=== PATIENT | female | born 1970 | race Caucasian/White ===

== ENCOUNTER → 2020-08-02 07:28 | Outpatient (CLI) | payer BC, SELFPAY ==
--- NOTE | 2020-08-02 08:00 | BRBX_PTH ---
PATIENT: CYDNEY COLORADO LOC: [facility] U#:[id number] AGE/SX: 55/F ROOM: RE08/02/[address]: Dr. Tabby Qiunteros MD : [id number] BED: DIS: SPEC #: [id number] RECD: 08/02/20 08:16 STATUS: BRENDA CHARITO #: [id number] DEBORA: 08/02/20 08:[address]: Tabby Quinteros DEPT: SURGICAL PATHOLOGY RECD BY: Cynthia Lopez ENTERED: 08/02/20 09:22 SP TYPE: BREAST BX OTHR DR: Dr. Hayden Dick MD Tissues: Breast, NOS Procedures: Surgery Specimen Level IV HEADER OPERATION: Left breast stereotactic needle core biopsy PRE-OP DIAGNOSIS: 1.2 cm focal asymmetry 1 o'clock middle depth TISSUE SUBMITTED: Left breast tissue ISCHEMIC TIME: 2 minutes FIXATION TIME: 11.5 hours MICROSCOPIC DIAGNOSIS Left breast, stereotactic needle core biopsy: Fibrocystic changes, focal adenosis, focal dense fibrosis and mild intraductal hyperplasia without atypia. Negative for malignancy. See comment. PEREZ:nicolas 08/03/20 COMMENT Correlation with clinical, radiologic findings and appropriate follow up are necessary. MICROSCOPIC DESCRIPTION Slides are reviewed. GROSS DESCRIPTION Received in fixative is one container labeled with the patient name and designated left breast. The specimen consists of multiple elongated fragments of aquino-yellow fibroadipose tissue that in aggregate measure 5 x 3 x 0.3 cm. The entire specimen is submitted in two cassettes. / PEREZ:nicolas 08/02/20 TC:5 CPT: 98831
--- NOTE | 2020-08-02 08:59 | PCM.OPRPT ---
Report of Operation Date of Procedure: 08/02/20 Pre-Operative Diagnosis: abnormal lesion seen on left breast mammograms Post-Operative Diagnosis: same Surgery/Procedure Performed:: left stereotactic breast biopsy Description of Surgical Findings:: nodular lesion seen on left breast mammograms Type of Anesthesia:: Local - 1% xylocaine Specimen's removed: left breast tissue Estimated Blood Loss (mL): minimal Description of Procedure: After informed consent was given, the patient was brought into the Breast Biopsy suite. Appropriate time out protocol was followed. The patient was placed in the prone position on the stereotactic biopsy table. The patient?s left breast was then placed in the opening at the head of the biopsy table. A fast food restaurant manager compression mammogram was then obtained in the CC view. The suspicious radiological lesion was thus identified. Stereo pictures of the lesion were then taken for XYZ coordinates. The Mammotome biopsy stylus was then positioned where it would be entering into the patient?s breast. The skin at this site was then cleansed with a surgical skin preparation. The skin and subcutaneous tissues at this site were then infiltrated with 1% xylocaine. A small skin incision was made with an 11 blade scalpel. The biopsy stylus was then positioned into the patient?s breast at the proper coordinates of depth. Using the Mammotome vacuum-assist device, several core samples of breast tissue were obtained. A hemostatic marker clip was then placed into the biopsy cavity and a fast food restaurant manager film revealed that it was properly deployed. I reviewed this personally and concluded that the tissue sampling was adequate. The patient was then placed in the supine position and pressure was applied to the breast until no active bleeding was noted. Steristrips were applied to reapproximate the skin. A unilateral mammogram in the CC and MLO view were then taken which revealed that the marker clip was in the same area as the previous suspicious lesion. The patient tolerated the procedure well and was discharged from the Breast Biopsy suite in good condition. - Complications none noted
== END ==
PROVIDERS: PCP Family Medicine; Referring Provider Surgery; Visit Provider Surgery
DX: R92.8 Other abnormal and inconclusive findings on diagnostic imaging of breast (principal); N62 Hypertrophy of breast; N60.32 Fibrosclerosis of left breast
CPT/HCPCS: 19081; 88305; J7050; A4648

== ENCOUNTER 2021-12-05 16:30 | Outpatient (RCR) | payer OTHER, SELFPAY ==
--- NOTE | 2021-11-05 16:43 | HP.OTEVAL ---
Patient's Visit Information SILVIA COLORADO is a 51 year old F, referred to Occupational Therapy by SARAH SCHAFFER, with a diagnosis of B carpal tunnel syndrome, B cubital tunnel syndrome. Date of Evaluation: 10/30/21 Occupational Therapist: Debbie Calderon S/OT - Subjective 51 year old female post ulnar nerve transposition sx. sx site on B elbows and at wrists. pt. c/o hypersensitivity to B elbows with touch and pressure. Pt. also stating she is having difficulty with wrist flexion, and decreased sensation to L fingers. She still has difficulty with grooming, household tasks, meal prep, & handwriting. Right CTR Ulnar nerve transposition was performed on 09-24-21 & Left on 10-08-21. Pt would like to return to her PLOF. 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 stating that she was able to dry her hair for the first time today, but still very difficult. Family has assisted with meal prep and pack operator such as vacuuming. - Pain Bilateral Elbow 0 - Objective hand writing is legible fatigues with time - ROM Elbow: Right 0/135 left 0/135 Wrist: right 45/35 left 45/45 ROM Comments: pt demo ability to form composite fist - Strength Shoulder: WNL Elbow: WNL Forearm: WNL Crime Prevention Worker: R 20#L20# Lateral Pinch: R9# L 9# Tripod Pinch: R9#L8# Tip-to-Tip Pinch: R7# L8# - Sensation Thumb: R& L3.61 Index: R& L3.61 Middle: R & L3.61 Ring: R 3.61 L3.84 Little: R 3.61 L 3.84 Sensation Comments: L ring and L little digits unable to feel past 3.61 filament. 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 Silvia will increase pinch strength to 15# for work performance within 6 weeks. Goal:: Silvia will improve R wrist ROM to 45 degrees for indep. with ADL tasks within 6 weeks. Silvia will improve L wrist ROM to 55 degrees for indep. ADL tasks within 6 weeks. Goal:: Silvia will increase handwriting endurance for work performance within 6 weeks. Goal:: Silvia will have decreased sensitivity to sx. site on B elbows within 6 weeks. Goal:: Silvia will demonstrate understanding of scar mgt within 6 weeks. Goal:: Silvia will increase independence with grooming without difficulty within 6 weeks. - Rehabilitation General Assessment: Pt. had ulnar compartmental release sx 5 weeks ago on R & then had sx 3 weeks ago on L. Because of limited wrist flexion and sensitivity to surgical area pt. has had decreased independence with ADL's, IADL's, and work performance with hand writing. Pt. would benefit from skilled OT 2x week for 6 weeks to improve wrist flexion, hand strength, scar management and desensitization of sx site,. today pt. participated in BUE AROM 15 reps from elbow to fingers. S/OT educated pt. on scar desensitization technique for home. S/OT educated pt. on what to expect with recovery. S/OT provided HEP and recommendations such as using gel pen for handwriting. S/OT completed evaluation for ROM and strength. pt. demo'd understanding and agreeable to POC. This session was directly supervised and doc. approved by Cici MUNSON/Polina T Rehabilitation Potential: Excellent - Anticipated Interventions A/AAROM/PROM, Strengthening, Scar Care, Desensitization, Modalities, Ergonomic Education, Fine Motor Coord/Serafin, Education re Diagnosis, Home Program - Visit Plan Frequency: 2x /Week Duration: 6 Weeks TEXT: Thank you for the opportunity to evaluate your patient. For Medicare and Medicare HMO plans, please review the plan of care and approve it. It will need to be FAXED BACK to us at [phone] for Medicare purposes. Please let me know if there are questions or concerns regarding this plan of care. Physician Signature: Date:
--- NOTE | 2021-11-05 17:01 | HP.OTEVAL_ITS ---
Patient's Visit Information CYDNEY COLORADO is a 51 year old F, referred to Occupational Therapy by SARAH SCHAFFER, with a diagnosis of B carpal tunnel syndrome, B cubital tunnel syndrome. Date of Evaluation: 10/30/21 Occupational Therapist: Cici Vargas, PAWELR/Polina, CHT - Subjective 51 year old female post ulnar nerve transposition sx. sx site on B elbows and at wrists. pt. c/o hypersensitivity to B elbows with touch and pressure. Pt. also stating she is having difficulty with wrist flexion, and decreased sensation to L fingers. She still has difficulty with grooming, household tasks, meal prep, & handwriting. Right CTR Ulnar nerve transposition was performed on 09-24-21 & Left on 10-08-21. Pt would like to return to her PLOF. 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 stating that she was able to dry her hair for the first time today, but still very difficult. Family has assisted with meal prep and cherry dipper such as vacuuming. - Pain Bilateral Elbow 0 - Objective hand writing is legible fatigues with time - ROM Elbow: Right 0/135 left 0/135 Wrist: right 45/35 left 45/45 ROM Comments: pt demo ability to form composite fist - Strength Shoulder: WNL Elbow: WNL Forearm: WNL Maintenance Mechanic Telephone: R 20#L20# Lateral Pinch: R9# L 9# Tripod Pinch: R9#L8# Tip-to-Tip Pinch: R7# L8# - Sensation Thumb: R& L3.61 Index: R& L3.61 Middle: R & L3.61 Ring: R 3.61 L3.84 Little: R 3.61 L 3.84 Sensation Comments: L ring and L little digits unable to feel past 3.61 filament. diminished light touch - Quick DASH-Disab of Arm,Shoulder& Hand Quick DASH Score: 55.0000 - Hand/Wrist Evaluation Total Score of Pain & Functional Sections: 0 - Goals Goal:: Cydney will increase senior technical support engineer strength to 30# for ADL tasks on B hands within 6 weeks. Cydney will increase pinch strength to 15# for work performance within 6 weeks. Goal:: Cydney will improve R wrist ROM to 45 degrees for indep. with ADL tasks within 6 weeks. Cydney will improve L wrist ROM to 55 degrees for indep. ADL tasks within 6 weeks. Goal:: Cydney will increase handwriting endurance for work performance within 6 weeks. Goal:: Cydney will have decreased sensitivity to sx. site on B elbows within 6 weeks. Goal:: Cydney will demonstrate understanding of scar mgt within 6 weeks. Goal:: Cydney will increase independence with grooming without difficulty within 6 weeks. - Rehabilitation General Assessment: Pt. had ulnar compartmental release sx 5 weeks ago on R & then had sx 3 weeks ago on L. Because of limited wrist flexion and sensitivity to surgical area pt. has had decreased independence with ADL's, IADL's, and work performance with hand writing. Pt. would benefit from skilled OT 2x week for 6 weeks to improve wrist flexion, hand strength, scar management and desensitization of sx site,. today pt. participated in BUE AROM 15 reps from elbow to fingers. S/OT educated pt. on scar desensitization technique for home. S/OT educated pt. on what to expect with recovery. S/OT provided HEP and recommendations such as using gel pen for handwriting. S/OT completed evaluation for ROM and strength. pt. demo'd understanding and agreeable to POC. This session was directly supervised and doc. approved by Cici MUNSON/Polina T Rehabilitation Potential: Excellent - Anticipated Interventions A/AAROM/PROM, Strengthening, Scar Care, Desensitization, Modalities, Ergonomic Education, Fine Motor Coord/Serafin, Education re Diagnosis, Home Program - Visit Plan Frequency: 2x /Week Duration: 6 Weeks TEXT: Thank you for the opportunity to evaluate your patient. For Medicare and Medicare HMO plans, please review the plan of care and approve it. It will need to be FAXED BACK to us at [phone] for Medicare purposes. Please let me know if there are questions or concerns regarding this plan of care. Physician Signature: Date:_
--- NOTE | 2021-11-05 17:05 | HP.OTEVAL ---
Patient's Visit Information SILVIA COLORADO is a 51 year old F, referred to Occupational Therapy by SARAH SCHAFFER, with a diagnosis of B carpal tunnel syndrome, B cubital tunnel syndrome. Date of Evaluation: 10/30/21 Occupational Therapist: Debbie Calderon - Subjective 51 year old female post ulnar nerve transposition sx. sx site on B elbows and at wrists. pt. c/o hypersensitivity to B elbows with touch and pressure. Pt. also stating she is having difficulty with wrist flexion, and decreased sensation to L fingers. She still has difficulty with grooming, household tasks, meal prep, & handwriting. Right CTR Ulnar nerve transposition was performed on 09-24-21 & Left on 10-08-21. Pt would like to return to her PLOF. 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 stating that she was able to dry her hair for the first time today, but still very difficult. Family has assisted with meal prep and welder production line arc such as vacuuming. - Pain Bilateral Elbow 0 - Objective hand writing is legible fatigues with time - ROM Elbow: Right 0/135 left 0/135 Wrist: right 45/35 left 45/45 ROM Comments: pt demo ability to form composite fist - Strength Shoulder: WNL Elbow: WNL Forearm: WNL Ballroom Dancer: R 20#L20# Lateral Pinch: R9# L 9# Tripod Pinch: R9#L8# Tip-to-Tip Pinch: R7# L8# - Sensation Thumb: R& L3.61 Index: R& L3.61 Middle: R & L3.61 Ring: R 3.61 L3.84 Little: R 3.61 L 3.84 Sensation Comments: L ring and L little digits unable to feel past 3.61 filament. diminished light touch - Quick DASH-Disab of Arm,Shoulder& Hand Quick DASH Score: 55.0000 - Hand/Wrist Evaluation Total Score of Pain & Functional Sections: 0 - Goals Goal:: Silvia will increase gearcase assembler strength to 30# for ADL tasks on B hands within 6 weeks. Silvia will increase pinch strength to 15# for work performance within 6 weeks. Goal:: Silvia will improve R wrist ROM to 45 degrees for indep. with ADL tasks within 6 weeks. Silvia will improve L wrist ROM to 55 degrees for indep. ADL tasks within 6 weeks. Goal:: Silvia will increase handwriting endurance for work performance within 6 weeks. Goal:: Silvia will have decreased sensitivity to sx. site on B elbows within 6 weeks. Goal:: Silvia will demonstrate understanding of scar mgt within 6 weeks. Goal:: Silvia will increase independence with grooming without difficulty within 6 weeks. - Rehabilitation General Assessment: pt. had ulnar compartmental release sx 5 weeks ago on R & then had sx 3 weeks ago on L. because of limited wrist flexion and sensitivity to surgical area pt. has had decreased independence with ADL's, IADL's, and work performance with hand writing. would benefit from skilled OT 2x week for 6 weeks to improve wrist flexion, hand strength, scar management and desensitization of sx site,. today pt. participated in BUE AROM 15 reps from elbow to fingers. educated pt. on scar desensitization technique for home. educated pt. on what to expect with recovery. provided HEP and recommendations such as using gel pen for handwriting. completed evaluation for ROM and strength. pt. demo'd understanding and agreeable to POC. This session was directly supervised and doc. approved by Cici Vargas OTR/Polina, T Rehabilitation Potential: Excellent - Anticipated Interventions A/AAROM/PROM, Strengthening, Scar Care, Desensitization, Modalities, Ergonomic Education, Fine Motor Coord/Serafin, Education re Diagnosis, Home Program - Visit Plan Frequency: 2x /Week Duration: 6 Weeks TEXT: Thank you for the opportunity to evaluate your patient. For Medicare and Medicare HMO plans, please review the plan of care and approve it. It will need to be FAXED BACK to us at [phone] for Medicare purposes. Please let me know if there are questions or concerns regarding this plan of care. Physician Signature: Date:
--- NOTE | 2022-04-17 15:18 | HP.OTDCSUM_ITS ---
It has been my pleasure to treat CYDNEY COLORADO under orders from SARAH SCHAFFER, for the diagnosis of B carpal tunnel syndrome, B cubital tunnel syndrome for a total of 12 visit(s). Please see the following information for a summary of their discharge status. 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 R wrist ext 35*. R wrist flex 60*. L wrist ext 35*. L wrist flex 60*. pt continues to demo weakness of bilateral helper animal laboratory strength but was instructed to continue her HEP to gain strength- pt demo understanding. Patient Goals: Regain Mobility, Regain Strength, Decrease Pain, Return to Work, Improve Fine Motor Skills, Use Hand/Wrist/Arm Normally Again, Decrease Tingling/Numbness, Increase ROM, Be More Independent in ADLS, Decrease Sensitivity, Resume Former Household Responsibilities (Cooking,Cleaning,Yard, etc.) Goal:: Cydney will increase helper animal laboratory strength to 30# for ADL tasks on B hands within 6 weeks. Cydney will increase pinch strength to 15# for work performance within 6 weeks. Goal:: Cydney will improve R wrist ROM to 45 degrees for indep. with ADL tasks within 6 weeks. Cydney will improve L wrist ROM to 55 degrees for indep. ADL tasks within 6 weeks. Goal:: Cydney will increase handwriting endurance for work performance within 6 weeks. Goal:: Cydney will have decreased sensitivity to sx. site on B elbows within 6 weeks. Goal:: Cydney will demonstrate understanding of scar mgt within 6 weeks. Goal:: Cydney will increase independence with grooming without difficulty within 6 weeks. Plan: DC Discharge Comments: Pt. has attended 12 therapy sessions. She has met all goals. Pt. reported she has improved her functional performance with ADL's, IADL's, and at work. She reported there has been a 90% improvement since the eval. If there are questions or concerns regarding this patient's occupational therapy, please fell free to call me at [phone]. Thank you for the referral of this patient. Sincerely, Cici Vargas, OTR/L, CHT
== END 2021-12-05 19:00 | disposition home or self-care (01) ==
LOC: OT 16:30
PROVIDERS: PCP Family Medicine
DX: G56.03 Carpal tunnel syndrome, bilateral upper limbs (principal); G56.23 Lesion of ulnar nerve, bilateral upper limbs
CPT/HCPCS: 97035; 97110; 97140; 97165; 97530

== ENCOUNTER 2022-08-31 14:22 | Emergency (ER) | payer OTHER, SELFPAY ==
[2022-08-31 14:24] VITALS: BP 118/75; PULSE 75; RESP 18; TEMP 36.2; O2SAT 100; BMI 32.5
--- NOTE | 2022-08-31 15:18 | EKG12_ITS ---
Test Reason : RIB PAIN Blood Pressure : / mmHG Vent. Rate : 075 BPM Atrial Rate : 075 BPM P-R Int : 152 ms QRS Dur : 072 ms QT Int : 406 ms P-R-T Axes : 018 -14 020 degrees QTc Int : 453 ms Normal sinus rhythm Anterior infarct , age undetermined Abnormal ECG Confirmed by SHANIQUA MICHEL, ASTRID ([id number]), business editor MAGALY GONCALVES ([id number]) on 09/02/2022 10:47:57 AM Referred By: Confirmed By:ASTRID MCGOVERN MD
--- NOTE | 2022-08-31 15:21 | EX.ED.DYSGE1 ---
HPI History of Present Illness Chief Complaint: Chest Other Informant: patient and family Narrative Narrative: Patient presents for an episode where she had some epigastric right upper quadrant pain and some bilateral lower rib pain. She states it hurts to move, twist, even lift up her arms. She did not get nauseated. She was nondiaphoretic. She was not lightheaded. She had pain at the lower rib cage but not up higher in the chest. No back pain. She took Tylenol at home and the symptoms are almost gone now except for some mild epigastric to right upper quadrant discomfort but it is quite mild now. Patient has had half a dozen or more of these episodes over the past 2 years. In between the episodes she feels totally fine. They usually last for half an hour to 2 hours. She has seen her doctor for them but not while she is having symptoms. She has also seen her pathology transcriptionist for which she sees because of a tachycardia. She has not had stress test. She also still has her gallbladder. At this time she is essentially asymptomatic. She has no family history of heart disease. She is non-smoker, no diabetes. She does have some high cholesterol and was started on a statin about a year ago. She is on Bystolic for heart rate control but not for blood pressure. She has never had high blood pressure. She also has no recent travel surgery immobilization personal or family history of DVT or PE. Past medical history: Tachycardia, migraines Medications include Aimovig, Bystolic, statin Allergy to erythromycin Surgeries include bilateral tubal ligation. She has not had cholecystectomy. Non-smoker lives with family [facility] Medical History (Updated 08/31/22 @ 19:[address] Keanu Theodore MD) Carpal tunnel syndrome, bilateral Deviated septum Hyperlipemia Migraine Tachycardia Home Medications erenumab-aooe 70 mg/mL subcutaneous auto-injector (Aimovig Autoinjector) mg subcut 08/31/22 [History Last Taken Unknown] hydrocodone-acetaminophen 5-325mg 5mg-325mg 1 tab PO Q6H PRN pain 3 days #6 tabs 08/31/22 [Rx Last Taken Unknown] ondansetron 4 mg disintegrating tablet 4 mg PO Q8H PRN nausea and vomiting #10 tabs 08/31/22 [Rx Last Taken Unknown] phentermine 37.5 mg tablet mg 08/31/22 [History Last Taken Unknown] sumatriptan succinate 100 mg tablet mg PO 08/31/22 [History Last Taken Unknown] Allergy/AdvReac Type Severity Reaction Status Date / Time erythromycin base Allergy Other Verified 08/31/22 14:24 [From E-Mycin] Surgical History (Updated 08/31/22 @ 15:22 by Yuliana Hall) History of tonsillectomy Social History Smoking Status: Never smoker ROS ROS ED ROS Narrative See history of present illness in addition. Constitutional Constitutional ED: Denies chills or fever(s) ENT ENT ED: Denies rhinorrhea or sore throat Cardiovascular Cardiovascular: Denies palpitations or racing heartbeat Respiratory/Chest Respiratory/Chest: Denies cough or dyspnea Gastrointestinal Gastrointestinal: Denies nausea or vomiting Genitourinary Genitourinary ED: Denies dysuria or hematuria Musculoskeletal Musculoskeletal: Denies back pain Integumentary Denies rash EXAM Physical Exam Narrative Exam Narrative: Physical exam HEENT no trauma no pallor mucous membranes are moist Neck shows no pain with range of motion palpation and no JVD. No stridor. Lungs are completely clear bilaterally. She takes good deep breaths without any pain or discomfort. There is really no rib tenderness now but she states the symptoms are essentially gone. I do not see any rashes or vesicles. Cardiac: Heart is regular without murmur gallop or rub. Tones are not muffled. She is not tachycardic. Peripheral pulses are normal x4 Abdomen she has minimal right upper quadrant epigastric tenderness. She states more that she can feel it pressing in that area but is not really objectively tender. There is certainly no rebound or guarding. There is no CVA tenderness. No suprapubic tenderness Extremities show no edema cords asymmetry distended veins or tenderness along the deep venous system Neurologically she is alert oriented and appropriate with him normal strength sensation and coordination. I see no skin rashes. Const Vital Signs: 08/31/22 14:24 08/31/22 15:23 08/31/22 17:24 Temperature 97.1 F L Temperature Source Temporal Pulse Rate 75 78 Respiratory Rate 18 16 Respiratory Effort Normal Non-Labored Respiratory Pattern Normal Blood Pressure 118/75 134/78 H Blood Pressure Mean 89 96 Pulse Ox 100 98 Oxygen Delivery Method Room Air Room Air Positive well nourished and well developed General Appearance ED: well developed and NAD MDM MDM MDM Narrative Medical decision making narrative: Review of prior records: I was able to find on our system a report of a nuclear stress test from 08/10/2014 done as an outpatient. This showed no evidence of ischemia at a high workload. This patient's symptoms are not typical of heart disease. She has had symptoms that last up to 2 hours widely spaced over about a 2-year period. She is not having dyspnea nausea vomiting etc. with the symptoms. The symptoms are not typical of pulmonary embolus. She has intermittent symptoms that last a short period of time with being completely asymptomatic between the episodes. They also occur bilaterally at the same time. She is not tachypneic hypoxic or tachycardic. She has no known risk factor for pulmonary embolus. For these reasons, we did not pursue this also her symptoms are now gone. Patient CBC showed a elevated white count at 14.6. Remainder CBC is normal. Electrolytes are overall normal. However, her liver function test did show a rise of bilirubin AST and ALT. This is leading me to think more likely that her symptoms are from biliary colic. My independent interpretation of the patient's single view AP chest x-ray shows no acute process. No cardiomegaly. No infiltrate. 16:15 I went to recheck the patient and talk to her. She is having the pain come back now. It is more in the epigastric and right upper quadrant than before. She has a little bit of tenderness in that area. This is leading me to think more likely that this is biliary in source. She is not having dyspnea. She does have some right upper quadrant tenderness but no rebound or guarding. With the elevated white count, elevated bilirubin, elevated AST and ALT we will do an ultrasound. Ultrasound showed gallstones and questionable thickening in a couple areas of the gallbladder. There is also question hypodense area in the liver. We did follow this as recommended on the ultrasound reading with CAT scan. This CAT scan shows no acute process. It also shows no finding of biliary obstruction. I rechecked the patient again. She is still completely asymptomatic. She would like to go home and follow-up. We discussed that she may have a HIDA scan in the future. We also discussed reasons that would bring her back between now and secondary evaluation. I also discussed that she may need cholecystectomy in the future. But I do not think that needs to be done acutely now and I do not think she needs admission. Lab Data Attestation: I reviewed the patient's lab results. Labs: Laboratory Results - last 24 hr 08/31/22 08/31/22 08/31/22 15:35 15:35 15:35 WBC 14.6 H RBC 4.88 Hgb 14.9 Hct 43.9 MCV 90.0 MCH 30.5 MCHC 33.9 RDW Std Deviation 40.2 RDW Coeff of Miguelito 12.2 Plt Count 288 MPV 10.4 Immature Gran % (Auto) 0.300 Neut % (Auto) 85.1 H Lymph % (Auto) 9.2 L Becker % (Auto) 4.2 Eos % (Auto) 0.8 Baso % (Auto) 0.4 Absolute Neuts (auto) 12.5 H Absolute Lymphs (auto) 1.34 Nucleated RBC % 0 Differential Comment SCANNED Sodium 143 Potassium 3.8 Chloride 110 H Carbon Dioxide 26.0 Anion Gap 7 BUN 17 Creatinine 0.93 Estim Creat Clear Calc 53.40 Est GFR (MDRD) Af Amer 81 Est GFR (MDRD) Non-Af 67 BUN/Creatinine Ratio 18.2 Glucose 121 H Calcium 9.2 Total Bilirubin 1.30 H AST 146 H ALT 104 H Alkaline Phosphatase 104 Troponin I High Sens 4 Total Protein 7.8 Albumin 4.1 Globulin 3.7 Albumin/Globulin Ratio 1.1 Lipase 191 Radiography Diagnostic Testing: Clinical Impression(s) from Imaging Studies Chest X-Ray 08/31/22 15:42 IMPRESSION: No radiographic evidence of acute cardiopulmonary disease. Electronically Signed: Mendoza Thomas MD at 16:05 EST , Gallbladder Ultrasound 08/31/22 16:17 IMPRESSION: Hypoechoic area of apparent hepatic parenchyma anterior to the common bile duct with associated intrahepatic and extrahepatic biliary dilation raises suspicion for cancer versus area of focal fatty sparing in an otherwise steatotic liver. Recommend liver protocol abdomen CT to evaluate malignant potential and cause of biliary obstruction. Electronically Signed: Mendoza Thomas MD at 18:14 EST , Abdomen/Pelvis CT 08/31/22 18:24 IMPRESSION: Negative CT of the abdomen and pelvis with and without contrast. The hypoechoic area anterior to the CBD on ultrasound probably represents focal fatty sparing in the liver faintly seen on portal venous and delayed series, a normal variant. No finding of biliary obstruction. Electronically Signed: Mendoza Thomas MD at 19:20 EST , EKG Initial EKG: Comments: My independent interpretation of an EKG done for bilateral rib pain shows a normal sinus rhythm. Overall rate is 75. There is no ectopy. No acute ST elevation or depression. [place] interval, QRS duration and QTc are normal. I looked for but was not able to find prior EKG on our system. Discharge Plan Triage Chief Complaint: Chest Other ED Provider: Keanu Theodore Dx/Rx/DC Orders Clinical Impression: Rib pain, Epigastric abdominal pain, Biliary colic Instructions: ED Abdominal Pain Gallstone Poss, ED Chest Pain, Uncertain Cause Prescriptions: New ondansetron 4 mg tablet,disintegrating 4 mg PO Q8H PRN (Reason: nausea and vomiting) Qty: 10 0RF hydrocodone-acetaminophen 5-325 mg tablet 1 tab PO Q6H PRN (Reason: pain) 3 Days Qty: 6 0RF No Action sumatriptan succinate 100 mg tablet PO Label Comments: TAKE ONE TABLET BY MOUTH NEEDED FOR MIGRAINE, CAN REPEAT DOSE IN TWO HOURS IF NEEDED. MAX 2/24 HOURS phentermine 37.5 mg tablet Label Comments: TAKE ONE TABLET BY MOUTH DAILY Aimovig Autoinjector 70 mg/mL auto-injector SUBCUT Label Comments: inject 1ml SUBCUTANEOUSLY ONCE EVERY MONTH Primary Care Provider: Hayden Dick Referrals: Hayden Dick MD [Primary Care Provider] - 3-5 Days Disposition Disposition: Home, Self Care
--- NOTE | 2022-08-31 15:42 | RAD_ITS ---
INDICATION: CP EXAMINATION/TECHNIQUE: X-RAY - XR Chest 1 View COMPARISON: None. FINDINGS: LINES/DEVICES: None. LUNGS: No consolidation, edema or effusion. No pneumothorax. MEDIASTINUM AND CARDIOVASCULAR STRUCTURES: Cardiac silhouette not enlarged. Central airways and mediastinal contour are unremarkable. RAD/Chest 1 View (Portable) IMPRESSION: No radiographic evidence of acute cardiopulmonary disease. Electronically Signed: Mendoza Thomas MD at 16:05 EST ,
[2022-08-31 15:50] LABS: Absolute Lymphocyte Count 1.34 X10^3/uL (0.83-4.51); Absolute Neutrophil Count 12.5 X10^3/uL (2.0-7.7); Basophil# 0.06 X10^3/uL; Basophil% 0.4 % (0-1); Eosinophil# 0.11 X10^3/uL; Eosinophils% 0.8 % (0-5); Hematocrit 43.9 % (37-47); Hemoglobin 14.9 g/dL (12.0-15.0); Lymphocyte # 1.34 X10^3/ul (0.83-4.51); Lymphocyte % 9.2 % (19-41); Mean Corp Hgb Conc 33.9 g/dL (32-36); Mean Corpuscular Hgb 30.5 pg (27.0-32.0); Mean Platelet Vol. 10.4 fl (6.2-12.0); Monocyte# 0.61 X10^3/uL; Monocyte% 4.2 % (0-10); NRBC Flagged by Analyzer 0 % (0-5); Neutrophil # 12.46 X10^3/uL (2.7-7.7); Neutrophil % 85.1 % (47-70); POSITIVE COUNT YES; Platelet Count 288 K/mm3 (150-450); RBC Distribution Width CV 12.2 % (11.6-14.6); RBC Distribution Width SD 40.2 fl (35.1-43.9); Red Blood Count 4.88 M/mm3 (4.2-5.4); White Blood Count 14.6 K/mm3 (4.4-11.0)
[2022-08-31 15:52] LABS: Differential Indicated SCAN CRITERIA MET
[2022-08-31 16:04] LABS: ALB/GLOB Ratio 1.1 RATIO (0.9-2.4); AST(SGOT) 146 U/L (15-37); Alanine Aminotransfer ALT/SGPT 104 U/L (13-56); Albumin, Serum 4.1 g/dL (3.2-5.0); Alkaline Phosphatase 104 U/L (45-117); Anion Gap 7 (5-15); BUN 17 mg/dL (7-18); BUN/Creat Ratio 18.2 RATIO (10-20); Calcium,Total 9.2 mg/dL (8.5-10.1); Chloride 110 mmol/L (98-107); Creatinine, Serum 0.93 mg/dL (0.55-1.02); EST Glomerular Filtration Rate 67 mL/min (>60); Est Glom Filt Rate - Afr Amer 81 mL/min (>60); Globulin 3.7 g/dL (2.2-4.2); Glucose 121 mg/dL (74-106); Potassium 3.8 mmol/L (3.5-5.1); Protein, Total 7.8 g/dL (6.4-8.2); Sodium Level 143 mmol/L (136-145); Troponin-I HS 4 pg/mL (3.0-54.0)
--- NOTE | 2022-08-31 16:17 | US_ITS ---
INDICATION: Right upper quadrant pain, elevated liver function EXAMINATION: Ultrasound US Abdomen RUQ (limited) TECHNIQUE: King scale and color doppler imaging was performed of the right upper quadrant. COMPARISON: None. FINDINGS: LIVER: There is increased echogenicity. There is intrahepatic biliary dilation. No focal hepatic lesion. There is no free fluid. GALLBLADDER AND BILIARY TREE: There are multiple stones in the gallbladder. The gallbladder wall is borderline thickened where measured, though this does not seem like a parts counter representative measurement. The proximal common bile duct measures 7.9 mm. There is a 6.2 x 3.1 x 5.4 cm hypoechoic area anterior to the common bile duct. Sonographic Cleaning''s sign: Negative. PANCREAS: No focal abnormality is demonstrated in the pancreas. No pancreatic ductal dilatation. RIGHT KIDNEY: 11.1 x 4.6 x 4.3 cm. No hydronephrosis. US/Gallbladder IMPRESSION: Hypoechoic area of apparent hepatic parenchyma anterior to the common bile duct with associated intrahepatic and extrahepatic biliary dilation raises suspicion for cancer versus area of focal fatty sparing in an otherwise steatotic liver. Recommend liver protocol abdomen CT to evaluate malignant potential and cause of biliary obstruction. Electronically Signed: Mendoza Thomas MD at 18:14 EST ,
[2022-08-31 16:26] LABS: Differential Comment SCANNED
[2022-08-31] MEDS: Ketorolac 15 MG/ML Vial IV (16:37)
[2022-08-31] MEDS: Ondansetron 4 MG/2 ML Vial IV (16:37)
[2022-08-31 17:24] VITALS: BP 134/78; PULSE 78; RESP 16; O2SAT 98
[2022-08-31] MEDS: Morphine 4 MG/ML Syringe IV (17:58)
--- NOTE | 2022-08-31 18:24 | CT_ITS ---
INDICATION: Pain, abnormal right upper quadrant ultrasound EXAMINATION: CT ABDOMEN AND PELVIS WITH AND WITHOUT CONTRAST - CT Abdomen And Pelvis WO/W Contrast Injection TECHNIQUE: Helically acquired images were obtained of the abdomen and pelvis both before and after IV contrast. A radiation dose optimization technique was used for this scan. IV Contrast dosage and agent: 100 cc Isovue-370 Oral contrast: None. COMPARISON: None. FINDINGS: LOWER CHEST: Lung bases are clear. No cardiomegaly or pericardial effusion. LIVER: Homogeneous. No focal mass. GALLBLADDER AND BILIARY TREE: No calcified gallstones. No gallbladder distension or wall edema. No intra- or extrahepatic biliary ductal dilation. PANCREAS: No focal cystic or solid mass. SPLEEN: Normal size without focal cystic or solid mass. ADRENAL GLANDS: No nodules. KIDNEYS AND URETERS: Normal renal size and position. No hydronephrosis. PERITONEUM: No ascites or free air. No other fluid collection. BOWEL: No evidence of acute appendicitis. No stomach or bowel distension. No focal inflammatory change. LYMPH NODES: No enlarged mesenteric or retroperitoneal lymph nodes. VESSELS: Aorta is non-dilated. URINARY BLADDER: Unremarkable. REPRODUCTIVE ORGANS: No pelvic masses. ABDOMINAL WALL: No discrete abdominal or pelvic wall hernia. BONES: Normal thoracolumbar vertebral alignment. CT/CT Abd/Pelvis W/WO Contrast IMPRESSION: Negative CT of the abdomen and pelvis with and without contrast. The hypoechoic area anterior to the CBD on ultrasound probably represents focal fatty sparing in the liver faintly seen on portal venous and delayed series, a normal variant. No finding of biliary obstruction. Electronically Signed: Mendoza Thomas MD at 19:20 EST ,
[2022-08-31 18:47] LABS: Lipase 191 U/L (73-393)
[2022-08-31 19:51] VITALS: PULSE 74; RESP 16; O2SAT 98
== END 2022-08-31 19:53 | disposition home or self-care (01) ==
PROVIDERS: Emergency Provider Emergency Medicine; PCP Family Medicine; Visit Provider Emergency Medicine
DX: R07.81 Pleurodynia (principal); K80.70 Calculus of gallbladder and bile duct without cholecystitis without obstruction; E78.00 Pure hypercholesterolemia, unspecified; R00.0 Tachycardia, unspecified; R10.13 Epigastric pain
CPT/HCPCS: 71045; 74178; 76705; 80053; 83690; 84484; 85025; 93005; 96374; 96375; 99282; Q9967; A4216; J2405

== ENCOUNTER 2022-09-20 12:47 | Day surgery (SDC) | payer OTHER, SELFPAY ==
[2022-09-20] VITALS (13 sets, daily range): BP systolic 140–169; BP diastolic 54–91; PULSE 58–88; RESP 16–18; TEMP 36.1–36.7; O2SAT 92–100; BMI 32.5
--- NOTE | 2022-09-20 13:05 | EKG12_ITS ---
Test Reason : PREOP Blood Pressure : / mmHG Vent. Rate : 071 BPM Atrial Rate : 071 BPM P-R Int : 154 ms QRS Dur : 068 ms QT Int : 426 ms P-R-T Axes : 019 -12 011 degrees QTc Int : 462 ms Normal sinus rhythm Normal ECG When compared with ECG of 31-AUG-2022 15:39, No significant change was found Confirmed by SHANIQUA MICHEL, ASTRID ([id number]), telegraph editor MAGALY GONCALVES ([id number]) on 09/24/2022 9:19:21 AM Referred By: Tyson Cheney Confirmed By:ASTRID MCGOVERN MD
[2022-09-20] MEDS: Lactated Ringers 1,000 ML 15 ML IV ×2 (13:37→16:04)
--- NOTE | 2022-09-20 13:38 | PCM.HP.BLA ---
History and Physical Date of Admission: 09/20/22 Intake Vital Signs ? 08/31/2313:24 09/11/2308:54 Height 5 ft 1 in 5 ft 1 in Weight: 172 lb 177 lb BMI 32.5 33.4 BP 118/75 133/89 H Blood Pressure Location ? Lt brachial Position ? Sitting Respiration 18 16 Pulse 75 ? Temp 97.1 F L ? Temp Source Temporal ? Pulse Oximetry (%) 100 ? Intake Visit Reasons:?CHOLECYSTECTOMY Chief Complaint: cholecystectomy Ammonia Nitrate Operator Required: No Is patient in pain?: Yes (right flank) Allergies erythromycin base [From E-Mycin] Allergy (Verified 09/11/22 09:55) Other Medications erenumab-aooe 70 mg/mL subcutaneous auto-injector (Aimovig Autoinjector) mg subcut 08/31/22 [History Confirmed 09/11/22] hydrocodone-acetaminophen 5-325mg 5mg-325mg 1 tab PO Q6H PRN pain 3 days #6 tabs 08/31/22 [Rx Confirmed 09/11/22] ondansetron 4 mg disintegrating tablet 4 mg PO Q8H PRN nausea and vomiting #10 tabs 08/31/22 [Rx Confirmed 09/11/22] phentermine 37.5 mg tablet mg 08/31/22 [History Confirmed 09/11/22] sumatriptan succinate 100 mg tablet mg PO 08/31/22 [History Confirmed 09/11/22] nebivolol 2.5 mg tablet 2.5 mg PO 09/11/22 [History Confirmed 09/11/22] pravastatin 20 mg tablet 20 mg PO 09/11/22 [History Confirmed 09/11/22] PFSH Medical History?(Updated 09/11/22 @ 11:[address] Tyson Cheney MD) Carpal tunnel syndrome, bilateral Deviated septum Hyperlipemia Migraine Tachycardia Surgical History?(Updated 09/11/22 @ 09:53 by Manuela Flowers) History of tonsillectomy S/P bladder repair S/P carpal tunnel release S/P cubital tunnel release S/P nasal septoplasty S/P tubal ligation Family History?(Updated 09/11/22 @ 09:53 by Manuela Flowers) Father Diabetes Heart disease CAD (coronary artery disease) Hypertension Social History?(Updated 09/11/22 @ 09:54 by Manuela Flowers) Smoking Status:? Never smoker alcohol intake:? never HPI HPI HPI: Patient is a 52-year-old female with episodic pain.? She says that when she feels the pain it feels like someone is grabbing her by her mid torso and squeezing.? She has occasionally she has epigastric pain as well.? She denies nausea or vomiting.? She says this happens in episodes and currently she is not having any pain. ROS General General: Yes weight change and fatigue; No appetite, colon cancer, breast cancer or weakness HEENT HEENT: No difficulty swallowing, eye injury, eye surgery, swollen glands or hoarseness Endo Endocrine: No thyroid disease, diabetes mellitus, thyroid cancer, Hair loss, heat intolerance or cold intolerance Skin Skin: No rash or changing moles Breast Breast: No left breast lump, right breast lump, nipple discharge, breast pain, abnormal mammogram, abnormal US or breast enlargement Musc Musculoskeletal: No back problems, arthritis, rheumatoid arthritis, gout or joint pain Cardio Cardiovascular: No murmur, pacemaker, heart disease, atrial fibrillation, high blood pressure, heart attack, heart stent, palpitations, shortness of breat with exertion or chest pain Psych Psychiatric: No depression, anxiety or hearing voices Resp Respiratory: No shortness of breath, Yes sleep apnea, No cough, No COPD, No asthma, No emphysema and No wheezing Gastro Gastrointestinal: Yes abdominal pain, Yes nausea or vomiting, No diarrhea, No constipation, No blood in stool, No acid reflux, No hemorrhoids, No ulcers, Yes gallbladder problem and No black,tarry stools Anish Hematologic: No blood thinners, No blood disorders, No bleeding, No anemia and No blood clots Neuro Neurologic: No system reviewed and no additional complaints, except as documented, No as per HPI, No abnormal gait, No abnormal hearing, No abnormal movements, No abnormal speech, No behavioral changes, No burning sensations, No confusion, No convulsions, No disequilibrium, No dizziness, No localized weakness, No frequent falls, No headache(s), No lack of coordination, No loss of vision, No memory loss, No numbness, No other visual disturbances, No radicular pain, No restless legs, No sensory deficit, No syncope, No tingling, No tremor(s), No weakness and No other Exam Const General: cooperative Orientation: alert and oriented x3 HENMT Head: normal to inspection Neck Neck: normal visual inspection and full ROM Chest Chest palpation & inspection: normal inspection of the chest Resp Effort & Inspection: normal respiratory effort Auscultation: clear to auscultation bilaterally Cardio Rate: regular rate Rhythm: regular rhythm GI Inspection: non-distended Palpation: soft and nontender Skin General: no rashes or lesions noted Neuro General: patient alert and patient oriented x3 Extrem General: full ROM Psych Appearance: grossly normal Mental Status: mental status grossly normal Assessment and Plan Assessment and Plan (1) Cholelithiasis: ?Status:?Acute ?Qualifiers: ?Cholelithiasis location:?gallbladder??Cholecystitis presence:?without cholecystitis??Biliary obstruction:?without biliary obstruction? Qualified Code(s):?K80.20 - Calculus of gallbladder without cholecystitis without obstruction (2) Biliary colic: ?Status:?Acute Plan Patient was recently emergency room and was found to have gallstones and possible thickening of the gallbladder wall.? She also had elevated bilirubin and AST and ALT.? She was sent home and told to follow-up with her PCP.? Her PCP sent her to me.? Currently she is not having any pain today but she does say that it comes and episodes.? I will schedule her for laparoscopic cholecystectomy and I informed her that if any of these episodes happen again or if she experienced any nausea or vomiting or fevers or chills she is to report to the emergency room and the on-call physician would handle her cholecystectomy emergently. I discussed the procedure in detail with the patient.? I discussed the risks, benefits, and alternatives of the procedure.? I discussed the risks including but not limited to bleeding, infection, injury to surrounding organs such as the liver, bile duct, bowels.? I did discuss the possibility of having to convert to an open procedure as well as the possibility that if any injuries occurred this may necessitate further surgery at a tertiary care center. Tyson Cheney MD Pager: [facility] [address] [place] [address], [address] [place] [address] Office: I have examined the patient and the H&P has been reviewed. There are no clinical changes since date of exam.
[2022-09-20] MEDS: Cefotetan 2 GM in 0.9% NS 100 ML IV (14:10)
--- NOTE | 2022-09-20 14:25 | RAD_ITS ---
STUDY: INTRAOPERATIVE CHOLANGIOGRAM. REASON FOR EXAM: Female, 52 years old. Laparoscopic cholecystectomy. FLUOROSCOPY TIME (if supplied): ( 12 seconds ) minutes/seconds. 4.18 mGy.. A cine loop of 35 images was obtained. TECHNIQUE: An intraoperative Cholangiogram was performed by the surgeon. Imaging was submitted. COMPARISON: None. FINDINGS: The intra-axial hepatic biliary ducts are unremarkable. Free flow of contrast is seen into the duodenum. RAD/Cholangiogram/ O R,Initial IMPRESSION: Unremarkable intraoperative cholangiogram. Electronically Signed: Fahad Reyes MD at 15:12 EST ,
--- NOTE | 2022-09-20 14:35 | GALL_PTH ---
PATIENT: CYDNEY COL[place]ADO LOC: [facility] [place] U#:[id number] AGE/SX: 52/F ROOM: RE09/20/[address]: Dr. Tyson Cheney MD : 1970 BED: DIS: 09/20/2022 SPEC #: [id number] RECD: 09/20/22 16:21 STATUS: BRENDA MCNEILL #: [id number] DEBORA: 09/20/22 14:[address]: Tyson Cheney DEPT: SURGICAL PATHOLOGY RECD BY: Cynthia Lopez ENTERED: 09/23/22 11:17 SP TYPE: KASSIE FOLEY DR: Dr. Hayden Dick MD Tissues: Gallbladder, NOS Procedures: Surgery Specimen Level III HEADER OPERATION: Laparoscopic cholecystectomy with IOC PRE-OP DIAGNOSIS: Cholelithiasis, biliary colic TISSUE SUBMITTED: Gallbladder MICROSCOPIC DIAGNOSIS Gallbladder, cholecystectomy: Chronic cholecystitis and cholelithiasis. AM:nicolas 09/24/2022 MICROSCOPIC DESCRIPTION Slides are reviewed. GROSS DESCRIPTION Received is one container labeled with the patient's name and designated gallbladder. The specimen consists of a gallbladder measuring 10.0 cm in length and 4.0 cm in diameter. The external surface is pink-aquino, smooth and glistening for the most part. Focally it is granular, hemorrhagic and contains cautery artifact. The gallbladder contains green-yellow mucoid bile and multiple aquino-yellow to light brown irregular stones measuring in aggregate 6.0 x 5.0 x 2.0 cm and 0.3 to 1.5 cm in greatest dimension. The mucosa is bile-stained and without any mass lesions. The gallbladder wall measures up to 0.1 cm in thickness. Close to the cystic duct, a hemorrhagic nodule is noted ? lymph node measuring 1.5 cm in greatest dimension. Scaffold Worker sections from the gallbladder and the cystic duct are submitted in two cassettes. Cassette 2 contains the hemorrhagic nodule, a possible lymph node, entirely submitted. / SJ:nicolas 09/23/2022 TC:3 CPT: 35840
[2022-09-20] MEDS: Bupiv/Epi 0.5% Mpf 30 ML Vial (15:08)
--- NOTE | 2022-09-20 15:30 | OP.PCM_ITS ---
Report of Operation Date of Procedure: 09/20/22 Pre-Operative Diagnosis: Cholelithiasis and biliary colic Post-Operative Diagnosis: Same Surgery/Procedure Performed:: Laparoscopic cholecystectomy with cholangiogram Specimen's removed: Gallbladder Description of Procedure: After obtaining informed consent patient was brought back to the operating room. General anesthesia was induced. The abdomen was prepped and draped in usual sterile fashion. A small midline incision was made superior to the umbilicus and deepened to the level of fascia. The fascia was elevated and incised. Next the peritoneum was elevated and incised in the same fashion. Finger sweep was performed and the Nunez trocar was placed into the abdomen. The balloon was inflated. The abdomen was inflated to 15 mmHg. Next a camera was introduced into the abdomen and the abdomen was inspected. Next under direct visualization three 5-mm ports were placed one subxiphoid and 2 subcostal. Next the gallbladder was elevated and retracted toward the right shoulder. The peritoneum was stripped from the gallbladder. The infundibulum was located and retracted laterally. Next the triangle of Calot was dissected and the cystic duct and cystic artery were identified. Cholangiograms were performed. A small nile was made in the right upper quadrant and the Ranfac catheter was placed into the abdomen. A clip was placed on proximal cystic duct and then an opening was made with the scissors and the Ranfac was placed into the cystic duct and clip was placed over it. Under fluoroscopy contrast was instilled into the gallbladder and the common duct, cystic duct as well as proximal hepatic ducts were identified. There was good filling of the duodenum. There were no filling defects noted in the common bile duct. The clip was removed as well as the catheter and the infundibulum was grasped once more. Three hemolock clips were placed across the cystic duct. The cystic duct was then divided leaving 2 clips on the stump. The cystic artery was clipped and divided in the same fashion. The hook cautery was then used to take the gallbladder off of the gallbladder bed. Hemostasis was obtained. Gallbladder fossa was irrigated and no active bleeding or bile leakage was noted. Next the camera was introduced in the subxiphoid port. An Endopouch bag was placed through the umbilical port and the gallbladder was placed into it. The gallbladder was then removed through the umbilical incision. The camera was then reinserted through the umbilical port. The gallbladder fossa was inspected once more and noted to be hemostatic with no leaking bile. The abdomen was suctioned dry. The 5 mm ports were removed under direct visualization. The umbilical port was then removed and the air was removed from the abdomen. Next using an 0 Vicryl suture the umbilical fascia was closed in a [id number] fashion. The umbilical port site was irrigated local anesthetic was administered to all the incisions. All the incisions were closed with interrupted subcuticular 4-0 Monocryl sutures followed by Steri- Strips and dressings. The patient was awoken and taken to PACU in stable condition. Admit VTE Documentation VTE Mechan Device Prophylaxis: SCD's
--- NOTE | 2022-09-20 15:31 | DCINST_ITS ---
Discharge Instructions Procedure Gallbladder Diet Discharge Diet: Light diet - advance as tolerated Activity Discharge Activity: May Not Drive (for 2-3 days or while taking narcotic pain medications.) and - (Do not drive, work heavy equipment or sign legal documents for 24 hours.) May shower in (days): 1 Lifting Restrictions: 20 lbs for 2 weeks Additional Activity Instructions:: Pain medication may cause nausea. You should typically eat light foods as you take your pain medications. Pain medication may also cause constipation. If this is a problem for you, please discuss with your doctor. Dressing / Incision Call your doctor if your incision/area has: Continuous Slow Oozing, Sudden Increased Bleeding, Increased Pain/ Swelling, Increased Redness and Foul Smelling Discharge Call your doctor if you observe: Fever of 101 or Higher Suture Line Care: Avoid Pulling/Pushing and Avoid Pinching/Bending Remove Dressing in: 2 days Additional Dressing/Incision Instructions:: Leave operative bandaids on for 2 days. When you remove dressing, leave Steri-Strips on until your follow-up appointment, or until the Steri-Strips fall off on their own. Follow Up Care Please Follow Up With: Tyson Cheney MD When: Please call to schedule 2 week follow up appointment. [phone] Test Results: Test results from this visit will be discussed in further detail at your follow- up appointment, if applicable. Discharge Plan Admission Attending Provider: Tyson Cheney Primary Care Provider: Hayden Dick Discharge Orders/Prescriptions Prescriptions: New oxycodone 5 mg tablet 5 - 10 mg PO Q6H PRN (Reason: pain) 5 Days Qty: 20 0RF No Action nebivolol 2.5 mg tablet 2.5 mg PO DAILY pravastatin 20 mg tablet 20 mg PO QHS sumatriptan succinate 100 mg tablet 100 mg PO PRN PRN (Reason: MIGRAINES) Label Comments: TAKE ONE TABLET BY MOUTH NEEDED FOR MIGRAINE, CAN REPEAT DOSE IN TWO HOURS IF NEEDED. MAX 2/24 HOURS Aimovig Autoinjector 70 mg/mL auto-injector 70 mg SUBCUT QMONTH Label Comments: inject 1ml SUBCUTANEOUSLY ONCE EVERY MONTH ondansetron 4 mg tablet,disintegrating 4 mg PO Q8H PRN (Reason: nausea and vomiting) Qty: 10 0RF hydrocodone-acetaminophen 5-325 mg tablet 1 tab PO Q6H PRN (Reason: pain) 3 Days Qty: 6 0RF topiramate 25 mg Capsule, Sprinkle 25 mg PO DAILY Referrals / Follow Up: Hayden Dick MD [Primary Care Provider] - Disposition Disposition (needs filled in before D/C Order can be placed): Home, Self Care
[2022-09-20] MEDS: oxyCODONE 5 MG Tablet PO (17:46)
[2022-09-20] MEDS: Acetaminophen 325 MG Tablet 650 MG PO (18:23)
== END 2022-09-20 19:24 | disposition home or self-care (01) ==
LOC: SDC 12:50 → AC 12:51
PROVIDERS: PCP Family Medicine; Referring Provider Surgery; Visit Provider Surgery
PROC: (CPT 47610; principal; 2022-09-20 14:15)
DX: K80.10 Calculus of gallbladder with chronic cholecystitis without obstruction (principal); E78.5 Hyperlipidemia, unspecified
CPT/HCPCS: 47563; 00790; 74300; 76000; 88304; 93005; J7120; J2405

== ENCOUNTER 2022-09-23 06:59 | Emergency (ER) | payer OTHER, SELFPAY ==
[2022-09-23 07:00] VITALS: BP 161/100; PULSE 75; RESP 18; TEMP 35.9; O2SAT 94; BMI 32.8
--- NOTE | 2022-09-23 07:19 | CT_ITS ---
STUDY: CT ABDOMEN AND PELVIS WITH CONTRAST REASON FOR EXAM: Female, 52 years old. R side abd pain, recent lap jessie RADIATION DOSAGE (If Supplied By Facility): CTDIvol = ( 21.11 ) mGy, DLP = ( 1257.61 ) mGycm TECHNIQUE: Transaxial images were obtained from the dome of the diaphragm to the symphysis pubis without oral contrast. IV 100mL Isovue-370 was administered. Sagittal and coronal images were reconstructed. Individualized dose optimization techniques were used for this CT. COMPARISON: Comparison is made with prior study dated 08/31/2022. FINDINGS: Patchy infiltrate in the posterior medial segment of the right lower lobe. Mild degree of increased markings at the left lung base. The visualized portions of the heart are within normal limits. There is decreased attenuation of the liver consistent with steatosis. The patient is status post cholecystectomy. Mild degree of central intrahepatic biliary ductal dilatation. This is normal for the postcholecystectomy state. Normal spleen. Normal pancreas. Normal bilateral adrenal glands. Normal right kidney. Normal left kidney. Normal visualized stomach. Normal small intestine. Moderate amount of fecal material is seen in the right hemicolon. The appendix is visualized and appears normal. Normal abdominal aorta. Normal inferior vena cava. Normal retroperitoneum. Normal urinary bladder. There is evidence of bilateral tubal ligation clips. Normal abdominal wall. Normal osseous structures. CT/Abdomen/Pelvis W IV Cont ONLY IMPRESSION: Fatty infiltration of the liver. Prior cholecystectomy. Moderate amount of fecal material is seen in the right hemicolon. Patchy infiltrate in the right lower lobe with increased markings at the left lung base. Electronically Signed: Fahad Reyes MD at 8:20 EST ,
--- NOTE | 2022-09-23 07:20 | ED.VIS.GI ---
HPI HPI - GI History of Present Illness Chief Complaint: Abd Pain Informant: patient Abdominal Pain/Flank Pain Onset: Today Context: Gradual Onset Timing: Continuous Quality: Aching Location: Right Flank Current Severity: Severe Maximum Severity: Severe Worsened by: Nothing Relieved by: Nothing Nausea/Vomiting/Emesis GI Symptom: Negative for Nausea or Vomiting Diarrhea/Melena/Hematochezia GI Symptom: Negative for Diarrhea, Melena or Hematochezia Associated Symptoms Associated Symptoms: Negative for Dysuria, Frequency or Hematuria Narrative Narrative: 52-year-old female less than 1 week post laparoscopic cholecystectomy here, she has been having regular soreness over the weekend and recovering uneventfully, she has not eaten a lot, but she has been drinking fluids. Started having right side abdominal pain more lower than upper earlier this morning and has progressed over multiple hours. No nausea or vomiting. No urinary problems, she has urinated and there is no blood. She has not yet had a bowel movement. She denies any bloating, no fevers or chills. PFSH [facility] Medical History Cardiology follow-up encounter CPAP (continuous positive airway pressure) dependence High cholesterol Hyperlipemia Migraine Non-smoker Tachycardia Tachycardia Wears contact lenses Home Medications erenumab-aooe 70 mg/mL subcutaneous auto-injector (Aimovig Autoinjector) 70 mg subcut QMONTH 08/31/22 [History Last Taken Unknown] hydrocodone-acetaminophen 5-325mg 5mg-325mg 1 tab PO Q6H PRN pain 3 days #6 tabs 08/31/22 [Rx Last Taken Unknown] ondansetron 4 mg disintegrating tablet 4 mg PO Q8H PRN nausea and vomiting #10 tabs 08/31/22 [Rx Last Taken Unknown] sumatriptan succinate 100 mg tablet 100 mg PO PRN PRN MIGRAINES 08/31/22 [History Last Taken Unknown] nebivolol 2.5 mg tablet 2.5 mg PO DAILY 09/11/22 [History Last Taken Unknown] pravastatin 20 mg tablet 20 mg PO QHS 09/11/22 [History Last Taken Unknown] topiramate 25 mg sprinkle capsule 25 mg PO DAILY 09/16/22 [History Last Taken Unknown] oxycodone 5 mg tablet 5 - 10 mg PO Q6H PRN pain 5 days #20 tabs 09/20/22 [Rx Last Taken Unknown] dicyclomine 10 mg capsule 20 mg PO Q4H PRN PRN abdominal discomfort #24 CAPSULES 09/23/22 [Rx Last Taken Unknown] levofloxacin 750 mg tablet 750 mg PO DAILY #4 tabs 09/23/22 [Rx Last Taken Unknown] Allergy/AdvReac Type Severity Reaction Status Date / Time erythromycin base Allergy Other Verified 09/20/22 13:25 [From E-Mycin] Family History (Updated 09/11/22 @ 09:53 by Manuela Flowers) Father Diabetes Heart disease CAD (coronary artery disease) Hypertension Surgical History History of tonsillectomy S/P bladder repair S/P carpal tunnel release S/P cubital tunnel release S/P nasal septoplasty S/P tubal ligation Social History Smoking Status: Never smoker alcohol intake: never ROS ROS ED Constitutional Constitutional ED: Denies chills or fever(s) Eyes Eyes: Denies change in vision or diplopia ENT ENT ED: Denies rhinorrhea or sore throat Cardiovascular Cardiovascular: Denies chest pain or palpitations Respiratory/Chest Respiratory/Chest: Denies cough or dyspnea Gastrointestinal Gastrointestinal: Reports as per HPI and abdominal pain; Denies diarrhea, nausea or vomiting Genitourinary Genitourinary ED: Denies dysuria or hematuria Musculoskeletal Musculoskeletal: Denies back pain or neck pain Integumentary Denies abscess or rash Neurologic Neurologic: Denies headache(s), paresthesias or weakness Psychiatric Psychiatric: Denies anxiety or suicidal thoughts EXAM Physical Exam Const Vital Signs: 09/23/22 07:00 09/23/22 07:29 09/23/22 08:09 Temperature 96.7 F L Temperature Source Temporal Pulse Rate 75 64 74 Respiratory Rate 18 Blood Pressure 161/100 H 169/95 H 187/93 H Blood Pressure Mean 120 119 124 Pulse Ox 94 98 Oxygen Delivery Method Room Air Room Air Positive well nourished and well developed Constitutional Narrative: No distress, but uncomfortable in pain General Appearance ED: well developed and NAD HEENT Reports moist mucous membranes normocephalic and atraumatic Eyes PERRL and EOMs intact bilaterally Neck full ROM and supple Resp normal respiratory effort and clear to auscultation bilaterally Cardio regular rate, regular rhythm and no murmurs GI GI Narrative: Seems distended but patient states that is her baseline. Tender throughout the right side worse in the right upper quadrant than the right lower quadrant. No guarding or rebound tenderness, although performing CVA tenderness test increases pain in her right lower quadrant. Auscultation: hypoactive bowel sounds Palpation: soft Back/Spine no CVA tenderness General Back: other FROM Extremity normal to inspection General Extremety ED: Negative for edema, pulses abnormal or tenderness General Extremity: Negative for edema or pulses abnormal Neuro oriented x3, CN's II-XII intact bilaterally and no sensory deficits noted Sensorium / Orientation: awake and alert Motor Exam: strength 5/5 throughout Psych mental status grossly normal and thought process normal Skin no rashes or lesions noted and no wounds MDM MDM MDM Narrative Medical decision making narrative: Labs show leukocytosis similar to before, trend toward leftward shift no bandemia. The rest of her labs are unremarkable including urinalysis which is negative, liver enzymes, lipase. I performed a CT since she recently had surgery. This shows no postoperative complications on imaging. I reviewed the images. My interpretation of the CT agrees with that of the radiologist. It does appear to show some infiltrate in the right lower lung, which may be more than atelectasis. The patient has been coughing a little but not a lot and not bringing up anything, but she states she is not coughing hard because it really hurts in her abdomen the cough, which is understandable given her recent surgery. The CT also shows a predilection of hard compacted stool in the right hemicolon which is right where the patient is hurting and I suspect this is probably the cause of the pain, she does indicate it hurts up higher as well, part of that is probably postoperative soreness from her cholecystectomy and part of this may also be a developing pneumonia. She is not hypoxic, her vital signs are stable except for being a little hypertensive, but she is in pain, which we treated. We will treat her with Levaquin orally which we started here and will continue as an outpatient, and I discussed with Dr. Cheney, and then confirmed that the hospital does not have any magnesium citrate still due to national extended back order apparently, so we did a soapsuds enema here and we will follow this up with double dose MiraLAX at home and plenty of fluids. Lab Data Attestation: I reviewed the patient's lab results. Labs: Laboratory Results - last 24 hr 09/23/22 09/23/22 09/23/22 07:32 07:32 08:45 WBC 14.9 H RBC 4.88 Hgb 14.7 Hct 43.5 MCV 89.1 MCH 30.1 MCHC 33.8 RDW Std Deviation 40.3 RDW Coeff of Miguelito 12.3 Plt Count 327 MPV 9.7 Immature Gran % (Auto) 0.600 Neut % (Auto) 83.7 H Lymph % (Auto) 9.7 L [place] % (Auto) 5.0 Eos % (Auto) 0.7 Baso % (Auto) 0.3 Absolute Neuts (auto) 12.5 H Absolute Lymphs (auto) 1.44 Nucleated RBC % 0 Sodium 140 Potassium 3.6 Chloride 107 Carbon Dioxide 24.0 Anion Gap 9 BUN 17 Creatinine 0.78 Estim Creat Clear Calc 63.67 Est GFR (MDRD) Af Amer 100 Est GFR (MDRD) Non-Af 83 BUN/Creatinine Ratio 21.9 H Glucose 132 H Calcium 9.3 Total Bilirubin 1.50 H AST 45 H ALT 74 H Alkaline Phosphatase 91 Total Protein 7.3 Albumin 3.5 Globulin 3.8 Albumin/Globulin Ratio 0.9 Lipase 95 Urine Color Yellow Urine Clarity Clear Urine pH 7.0 Ur Specific [place] 1.005 Urine Protein Negative Urine Glucose (UA) Normal Urine Ketones Negative Urine Occult Blood Negative Urine Nitrite Negative Urine Bilirubin Negative Urine Urobilinogen Normal Ur Leukocyte Esterase Negative Urine RBC 0 SEEN Urine WBC 0 SEEN Ur Squamous Epith Cells 0 SEEN Urine Bacteria 0 SEEN Urine Mucus 0 SEEN Radiography Diagnostic Testing: Clinical Impression(s) from Imaging Studies Abdomen/Pelvis CT 09/23/22 07:19 IMPRESSION: Fatty infiltration of the liver. Prior cholecystectomy. Moderate amount of fecal material is seen in the right hemicolon. Patchy infiltrate in the right lower lobe with increased markings at the left lung base. Electronically Signed: Fahad Reyes MD at 8:20 EST , Discharge Plan Triage Chief Complaint: Abd Pain ED Provider: Alonzo Zamora Dx/Rx/DC Orders Clinical Impression: Constipation, RLL pneumonia Instructions: ED Constipation (Adult), ED Pneumonia (Adult) Prescriptions: New levofloxacin 750 mg tablet 750 mg PO DAILY Qty: 4 0RF dicyclomine 10 mg capsule 20 mg PO Q4H PRN PRN (Reason: abdominal discomfort) Qty: 24 0RF No Action nebivolol 2.5 mg tablet 2.5 mg PO DAILY pravastatin 20 mg tablet 20 mg PO QHS sumatriptan succinate 100 mg tablet 100 mg PO PRN PRN (Reason: MIGRAINES) Label Comments: TAKE ONE TABLET BY MOUTH NEEDED FOR MIGRAINE, CAN REPEAT DOSE IN TWO HOURS IF NEEDED. MAX 2/24 HOURS Aimovig Autoinjector 70 mg/mL auto-injector 70 mg SUBCUT QMONTH Label Comments: inject 1ml SUBCUTANEOUSLY ONCE EVERY MONTH ondansetron 4 mg tablet,disintegrating 4 mg PO Q8H PRN (Reason: nausea and vomiting) Qty: 10 0RF hydrocodone-acetaminophen 5-325 mg tablet 1 tab PO Q6H PRN (Reason: pain) 3 Days Qty: 6 0RF topiramate 25 mg Capsule, Sprinkle 25 mg PO DAILY oxycodone 5 mg tablet 5 - 10 mg PO Q6H PRN (Reason: pain) 5 Days Qty: 20 0RF Primary Care Provider: Hayden Dick Referrals: Tyson Cheney MD [Med Staff - Active Staff] - (this week or as scheduled if within next 1-2 wks; or sooner if increasing pains) Hayden Dick MD [Primary Care Provider] - 1-2 Weeks Activity Restrictions/Additional Instructions: - Start prescription antibiotic tomorrow morning 09/24 since you already had first dose today. - When you get home, take MiraLAX 2 capfuls, about 34 g. John with plenty of fluids, at least 16 ounces but more is better. You may repeat this daily as needed until you are having good bowel movements. This should result in improvement or resolution of your pain in the right side. Stay hydrated. - Try to avoid taking the oxycodone as much as possible, use the new prescription first for the newer right-sided abdominal pain, and the oxycodone as needed for breakthrough. Disposition Disposition: Home, Self Care
[2022-09-23] MEDS: Morphine 4 MG/ML Syringe IV (07:27)
[2022-09-23] MEDS: 0.9% Normal Saline 1,000 ML 1000 ML IV (07:27)
[2022-09-23 07:29] VITALS: BP 169/95; PULSE 64; O2SAT 98
[2022-09-23 07:42] LABS: Absolute Lymphocyte Count 1.44 X10^3/uL (0.83-4.51); Absolute Neutrophil Count 12.5 X10^3/uL (2.0-7.7); Basophil# 0.05 X10^3/uL; Basophil% 0.3 % (0-1); Eosinophils% 0.7 % (0-5); Hematocrit 43.5 % (37-47); Hemoglobin 14.7 g/dL (12.0-15.0); Lymphocyte # 1.44 X10^3/ul (0.83-4.51); Lymphocyte % 9.7 % (19-41); Mean Corp Hgb Conc 33.8 g/dL (32-36); Mean Corpuscular Hgb 30.1 pg (27.0-32.0); Mean Corpuscular Volume 89.1 fL (81-99); Mean Platelet Vol. 9.7 fl (6.2-12.0); Monocyte# 0.75 X10^3/uL; NRBC Flagged by Analyzer 0 % (0-5); Neutrophil # 12.46 X10^3/uL (2.7-7.7); Neutrophil % 83.7 % (47-70); Platelet Count 327 K/mm3 (150-450); RBC Distribution Width CV 12.3 % (11.6-14.6); RBC Distribution Width SD 40.3 fl (35.1-43.9); Red Blood Count 4.88 M/mm3 (4.2-5.4); White Blood Count 14.9 K/mm3 (4.4-11.0)
[2022-09-23 07:58] LABS: ALB/GLOB Ratio 0.9 RATIO (0.9-2.4); AST(SGOT) 45 U/L (15-37); Alanine Aminotransfer ALT/SGPT 74 U/L (13-56); Albumin, Serum 3.5 g/dL (3.2-5.0); Alkaline Phosphatase 91 U/L (45-117); Anion Gap 9 (5-15); BUN 17 mg/dL (7-18); BUN/Creat Ratio 21.9 RATIO (10-20); Calcium,Total 9.3 mg/dL (8.5-10.1); Chloride 107 mmol/L (98-107); Creatinine, Serum 0.78 mg/dL (0.55-1.02); EST Glomerular Filtration Rate 83 mL/min (>60); Est Glom Filt Rate - Afr Amer 100 mL/min (>60); Estimated Creatinine Clearance 63.67 ml/min; Globulin 3.8 g/dL (2.2-4.2); Glucose 132 mg/dL (74-106); Lipase 95 U/L (73-393); Potassium 3.6 mmol/L (3.5-5.1); Protein, Total 7.3 g/dL (6.4-8.2); Sodium Level 140 mmol/L (136-145)
[2022-09-23] MEDS: Ketorolac 15 MG/ML Vial IV (08:08)
[2022-09-23 08:09] VITALS: BP 187/93; PULSE 74
[2022-09-23 08:51] LABS: Bacteria 0 SEEN /hpf (None Seen); Color, Urine Yellow (Yellow); Glucose, Dipstick Normal (Normal); Ketone-Dipstick Negative (Negative); Leukocyte Esterase-Dipstick Negative /ul (Negative); Mucous, Urine 0 SEEN /hpf (<or=2+); Nitrite-Dipstick Negative (Negative); Occult Blood-Urine Negative /ul (Negative); Protein-Dipstick Negative (Negative); Red Blood Cells-Urine 0 SEEN /hpf (0-5); Specific Gravity, Urine 1.005 (1.002-1.030); Squamous Epithelial Cells - UA 0 SEEN /hpf (5-10); Urine Bilirubin Dipstick Negative (Negative); Urine Clarity Clear (Clear); Urine Urobilinogen Normal (Normal); White Blood Cells 0 SEEN /hpf (0-5)
[2022-09-23] MEDS: levoFLOXacin 750 MG Tablet PO (09:25)
[2022-09-23] MEDS: Dicyclomine 10 MG Capsule 20 MG PO (09:25)
[2022-09-23] MEDS: Ondansetron 8 MG Tablet PO (10:26)
== END 2022-09-23 10:46 | disposition home or self-care (01) ==
PROVIDERS: Emergency Provider Emergency Medicine; PCP Family Medicine; Visit Provider Emergency Medicine
DX: K59.00 Constipation, unspecified (principal); J18.9 Pneumonia, unspecified organism; Z90.49 Acquired absence of other specified parts of digestive tract; E78.00 Pure hypercholesterolemia, unspecified
CPT/HCPCS: 74177; 80053; 81001; 83690; 85025; 96361; 96374; 96375; 99284; J7030; Q9967; A4216

== ENCOUNTER 2023-04-18 08:03 | Day surgery (SDC) | payer OTHER, SELFPAY ==
[2023-04-17 08:41] LABS: Hemoglobin 14.8 g/dL (12.0-15.0); Mean Corp Hgb Conc 32.9 g/dL (32-36); Mean Corpuscular Hgb 31.1 pg (27.0-32.0); Mean Corpuscular Volume 94.5 fL (81-99); Mean Platelet Vol. 9.8 fl (6.2-12.0); Platelet Count 305 K/mm3 (150-450); RBC Distribution Width CV 13.2 % (11.6-14.6); RBC Distribution Width SD 45.7 fl (35.1-43.9); Red Blood Count 4.76 M/mm3 (4.2-5.4); White Blood Count 6.6 K/mm3 (4.4-11.0)
[2023-04-18] VITALS (7 sets, daily range): BP systolic 121–141; BP diastolic 72–86; PULSE 74–90; RESP 16–18; TEMP 36.7–37.4; O2SAT 93–100; BMI 35.5
--- NOTE | 2023-04-18 | EMB_PTH ---
PATIENT: CYDNEY [place] LOC: [facility] [place] U#:[id number] AGE/SX: 52/F ROOM: RE04/18/[address]: Dr. Negrita Pruett, : 1970 BED: DIS: 04/18/2023 SPEC #: [id number] RECD: 04/18/23 12:49 STATUS: BRENDA CHARITO #: [id number] DEBORA: 04/18/23 00:[address]: Negrita Pruett DEPT: SURGICAL PATHOLOGY RECD BY: Nam Moreno ENTERED: 04/18/23 12:49 SP TYPE: ENDOM BX/C OG DR: Dr. Hayden Dick MD Tissues: Endometrium, NOS Procedures: Surgery Specimen Level IV HEADER OPERATION: Hysteroscopy, D & C Symphion PRE-OP DIAGNOSIS: Postmenopausal bleeding, fluid in endometrial cavity TISSUE SUBMITTED: Endometrial curettings MICROSCOPIC DIAGNOSIS Endometrium, curettings: Weakly proliferative with inactive endometrium. Rare strips of benign superficial endocervix. Strips of benign squamous mucosa. AM:nicolas 04/21/2023 MICROSCOPIC DESCRIPTION Slides are reviewed. GROSS DESCRIPTION Received in fixative is one container labeled with the patient's name and designated endometrial curettings. The specimen consists of multiple fragments of hemorrhagic soft tissue that in aggregate measure 2.5 x 1.5 x 0.1 cm. The specimen is totally submitted in one cassette. / SJ:nicolas 04/18/2023 TC:5 CPT: 85020
[2023-04-18] MEDS: Lactated Ringers 1,000 ML 15 ML IV (08:28)
[2023-04-18 08:37] LABS: Internal QC Validated? YES +Cl - CLEAR BKGD; Pregnancy, Urine Negative Negative
[2023-04-18] MEDS: Lidocaine 1% (20 ml mdv) 20 ML Vial (10:00)
--- NOTE | 2023-04-18 10:23 | DCINST_ITS ---
Discharge Instructions Diet Discharge Diet: No restrictions Activity Discharge Activity: May Not Drive (for 24 hours after surgery) and May Not Shower (for 24 hours after surgery) May resume sexual activity in: 1-2 weeks (no soaking in water or anything placed in the vagina for 1 week) Weight Bearing Status: Weight bearing as tolerated Lifting Restrictions: none Dressing / Incision Call your doctor if you observe: Fever of 101 or Higher, Coldness, Increased Pain, Numbness or Tingling, Change in Color, Inability to urinate, Inability to have a bowel movement, Using more than 1 pad per hour, Shortness of breath, Dizziness, Fainting spells, Swelling in the ankles, Chest pain, Increased palpitations (irregular heartbeat), Calf discomfort and Uncontrolled pain Follow Up Care Please Follow Up With: Negrita Pruett DO When: 1-2 weeks for a post op Test Results: Test results from this visit will be discussed in further detail at your follow- up appointment, if applicable. Discharge Plan Admission Primary Reason for Your Visit: surgery Attending Provider: Negrita Pruett Primary Care Provider: Hayden Dick Instructions Patient Instructions: Dilation and Curettage Discharge Orders/Prescriptions Prescriptions: Continued nebivolol 2.5 mg tablet 2.5 mg PO DAILY pravastatin 20 mg tablet 20 mg PO QHS sumatriptan succinate 100 mg tablet 100 mg PO PRN PRN (Reason: MIGRAINES) Patient Comments: TAKE ONE TABLET BY MOUTH NEEDED FOR MIGRAINE, CAN REPEAT DOSE IN TWO HOURS IF NEEDED. MAX 2/24 HOURS Aimovig Autoinjector 70 mg/mL auto-injector 70 mg SUBCUT QMONTH Patient Comments: inject 1ml SUBCUTANEOUSLY ONCE EVERY MONTH topiramate 25 mg Capsule, Sprinkle 50 mg PO DAILY Referrals / Follow Up: Hayden Dick MD [Primary Care Provider] - Disposition Disposition (needs filled in before D/C Order can be placed): Home, Self Care
--- NOTE | 2023-04-18 10:24 | OP.PCM_ITS ---
Problems Associated Problem List Diagnoses (1) PMB (postmenopausal bleeding): Report of Operation Date of Procedure: 04/18/23 Pre-Operative Diagnosis: PMB, pelvic ultrasound with abnormal endometrial complex Post-Operative Diagnosis: PMB Surgery/Procedure Performed:: Hysteroscopy D&C Description of Surgical Findings:: Normal-appearing uterine cavity without lesions noted. Bilateral tubal ostia visualized. Atrophic appearing endometrium. Surgeon: Negrita Pruett early childhood teacher assistant: None Type of Anesthesia: MAC Special Medications: None Specimen's removed: Endometrial curettings Drains: None Estimated Blood Loss (mL): < 50 Fluids Replaced: 0 cc fluid deficit Description of Procedure: The patient was taken to the operating room where MAC anesthesia was found to be adequate. She was prepped and draped in the dorsal lithotomy position using yellowfin stirrups. A weighted speculum was placed in the vagina to expose the cervix. The anterior lip of the cervix was grasped with a single-tooth tenaculum. The cervix was serially dilated to accommodate the Symphion hysteroscope. The Symphion hysteroscope was gently advanced to the fundus of the uterus, and distended with normal saline as distention media. The bilateral tubal ostia were visualized. The uterine cavity was normal-appearing without any polyps or fibroids noted. The endometrium was atrophic appearing. The Symphion hysteroscope was slowly removed and the endocervical canal was normal- appearing with no lesions noted. A sharp curettage was performed for minimal amount of tissue. The endometrial curettings were sent to pathology for review. All instruments were removed from the vagina. Bleeding was hemostatic. Vaginal sweep was performed. The patient was taken to recovery in stable condition. Grafts/Implants Used: None Procedure Start Time: 10:00 Procedure Stop Time: 10:18 Complications None Admit VTE Documentation VTE Present on Admission: No VTE Mechan Device Prophylaxis: SCD's
== END 2023-04-18 11:20 | disposition home or self-care (01) ==
LOC: SDC 08:03 → AC 08:03
PROVIDERS: PCP Family Medicine; Referring Provider Obstetrics & Gynecology; Visit Provider Obstetrics & Gynecology
PROC: 0UB98ZZ Excision of Uterus, Via Natural or Artificial Opening Endoscopic (ICD-10-PCS; CPT 58558; principal; 2023-04-18 09:35)
DX: N95.0 Postmenopausal bleeding (principal); E78.5 Hyperlipidemia, unspecified; N85.9 Noninflammatory disorder of uterus, unspecified
CPT/HCPCS: 58558; 00952; 36415; 81025; 85027; 86850; 86900; 86901; 88305; J7120; J2405